=== PATIENT | male | born 1970 | race Caucasian/White ===

== ENCOUNTER 2017-11-23 06:02 | Inpatient (IN) | payer OTHER ==
[2017-11-23] MEDS ORDERED: PROPOFOL 20 ML (06:28)
[2017-11-23] MEDS ORDERED: GLYCOPYRROLATE 0.4 MG INJ (06:28)
[2017-11-23] MEDS ORDERED: NEOSTIGMINE 3 MG/3 ML SYRINGE (06:29)
[2017-11-23] MEDS ORDERED: ROCURONIUM 50 MG INJ (06:29)
[2017-11-23] MEDS ORDERED: MIDAZOLAM 1 MG/ML 2 ML INJ (06:29)
[2017-11-23] MEDS ORDERED: FENTAnyl 50 MCG/ML VIAL ×2 (06:29→09:32)
[2017-11-23] MEDS ORDERED: FENTAnyl 50 MCG/ML VIAL IV ×2 (06:30)
[2017-11-23] MEDS ORDERED: hydrALAzine 20 MG INJ IV (06:30)
[2017-11-23] MEDS ORDERED: HYDROmorphONE 1 MG/5 ML IV SYRINGE IV (06:30)
[2017-11-23] MEDS ORDERED: EPHEDrine SULFATE 50 MG/5 ML SYG IV (06:30)
[2017-11-23] MEDS ORDERED: LABETALOL HCL 20MG INJ IV (06:30)
[2017-11-23] MEDS ORDERED: MIDAZOLAM 1 MG/ML 2 ML INJ IV (06:30)
[2017-11-23] MEDS ORDERED: morphine (1 MG/ML) 10ML SYRINGE IV ×3 (06:30)
[2017-11-23] MEDS ORDERED: ATROPINE 1 MG/10 ML SYRINGE IV (06:30)
[2017-11-23] MEDS ORDERED: OXYCODONE/ACETAMINOPHEN (5/325) TAB PO ×2 (06:30)
[2017-11-23] MEDS ORDERED: LIDOCAINE 2%/EPI 30 ML INJ (06:44)
[2017-11-23] MEDS ORDERED: SUCCINYLCHOLINE CHLORIDE 100 MG/5 ML SYG IV (07:00)
[2017-11-23] MEDS ORDERED: CEFAZOLIN 1 GM INJ (07:00)
[2017-11-23] MEDS ORDERED: metroNIDAZOLE 500 MG/100 ML NS IVPB (07:00)
[2017-11-23] MEDS ORDERED: SEVOFLURANE 15 MIN (07:00)
[2017-11-23] MEDS ORDERED: DEXAMETHASONE 4 MG/ML 1 ML INJ (08:38)
[2017-11-23] MEDS ORDERED: ONDANSETRON 4 MG INJ (08:39)
[2017-11-23] MEDS: BUPIVACAINE 0.25%/EPI (SDV) 30 ML INJ (09:21)
[2017-11-23] MEDS ORDERED: SUGAMMADEX SODIUM 200 MG/2 ML VIAL IV (12:01)
[2017-11-23] MEDS ORDERED: FUROSEMIDE 20 MG INJ (12:28)
[2017-11-23] MEDS: METHYLENE BLUE 1% 10 ML INJ (13:12)
[2017-11-23] MEDS ORDERED: NALOXONE (0.4 MG/ML) INJ IV (15:00)
[2017-11-23] MEDS: AMPICILLIN/SULB 3 GM/NS (PMX) 100 ML IVPB ×2 (15:00→21:20)
[2017-11-23] MEDS: ONDANSETRON 4 MG INJ IV (15:15)
[2017-11-23] MEDS: HYDROmorphONE 1 MG/5 ML IV SYRINGE IV ×2 (15:15→15:33)
[2017-11-23] MEDS: DIPHENHYDRAMINE 50 MG INJ IV (15:16)
[2017-11-23] MEDS: MEPERIDINE 25 MG INJ IV (15:16)
[2017-11-23] MEDS: FENTAnyl 2MCG/ML-ROPIV 0.2% 100 ML BAG EPI (15:23)
[2017-11-23] MEDS: LACTATED RINGER'S 1,000 ML IV (16:30)
[2017-11-23] MEDS: ACETAMINOPHEN 325 MG TAB PO (19:50)
[2017-11-23] MEDS: DOCUSATE SODIUM 100 MG CAP PO (21:25)
[2017-11-23] MEDS: FAMOTIDINE 20 MG INJ IV ×2 (21:25→21:29)
[2017-11-23] MEDS: ZOLPIDEM 5 MG TAB PO (22:10)
[2017-11-24] MEDS: LACTATED RINGER'S 1,000 ML IV (00:32)
[2017-11-24] MEDS: ACETAMINOPHEN 1000MG/100ML IV 100 ML IVPB ×4 (00:32→22:31)
[2017-11-24] MEDS: ZOLPIDEM 5 MG TAB PO ×2 (00:32→23:57)
[2017-11-24] MEDS: AMPICILLIN/SULB 3 GM/NS (PMX) 100 ML IVPB ×2 (02:30→08:14)
[2017-11-24] MEDS: FENTAnyl 2MCG/ML-ROPIV 0.2% 100 ML BAG EPI ×2 (04:17→17:09)
[2017-11-24 05:22] LABS: ADD MAN DIFF? NO
[2017-11-24 05:29] LABS: BASOPHILS % 0.2 % (0.0-2.0); HEMATOCRIT 35.9 % (42.0-52.0); HEMOGLOBIN 11.8 g/dl (14.0-18.0); LYMPHOCYTES # 1.3 10^3/ul (0.8-2.9); LYMPHOCYTES % 15.3 % (15.0-51.0); MEAN CORPUSCULAR HEMOGLOBIN 29.4 pg (29.0-33.0); MEAN CORPUSCULAR HGB CONC 32.9 g/dl (32.0-37.0); MEAN CORPUSCULAR VOLUME 89.5 fl (82.0-101.0); MEAN PLATELET VOLUME 10.5 fl (7.4-10.4); MONOCYTE # 1.1 10^3/ul (0.3-0.9); MONOCYTES % 13.1 % (0.0-11.0); NEUTROPHILS % 71.2 % (39.0-77.0); PLATELET COUNT 193 10^3/UL (140-415); POSITIVE DIFF @See below; RED BLOOD COUNT 4.01 10^6/ul (4.70-6.10); RED CELL DISTRIBUTION WIDTH 14.2 % (11.5-14.5)
[2017-11-24 05:29] LABS: WHITE BLOOD COUNT 8.5 10^3/ul (4.8-10.8)
[2017-11-24 07:42] LABS: ANION GAP 11 (8-16); BLOOD UREA NITROGEN 9 mg/dl (7-20); CALCIUM 8.6 mg/dl (8.4-10.2); CARBON DIOXIDE 27 mmol/L (21-31); CHLORIDE 103 mmol/L (97-110); CREATININE 0.87 mg/dl (0.61-1.24); GLUCOSE 98 mg/dl (70-220); POTASSIUM 3.6 mmol/L (3.5-5.1); SODIUM 137 mmol/L (135-144)
[2017-11-24] MEDS: DOCUSATE SODIUM 100 MG CAP PO ×3 (08:14→19:55)
[2017-11-24] MEDS: OXYCODONE/ACETAMINOPHEN (5/325) TAB PO (08:48)
[2017-11-24] MEDS ORDERED: OXYCODONE/ACETAMINOPHEN (5/325) TAB PO (09:00)
[2017-11-24] MEDS: DEXTROSE 5%-0.45% NACL 1,000 ML IV ×2 (09:21→22:35)
[2017-11-24] MEDS: HYDROmorphONE 1 MG/ML SYG IV ×3 (11:08→19:56)
[2017-11-24] MEDS: FAMOTIDINE 20 MG INJ IV (19:56)
[2017-11-25 05:27] LABS: ADD MAN DIFF? NO
[2017-11-25 05:36] LABS: WHITE BLOOD COUNT 10.1 10^3/ul (4.8-10.8)
[2017-11-25 05:36] LABS: BASOPHILS % 0.3 % (0.0-2.0); EOSINOPHILS % 0.4 % (0.0-7.0); HEMATOCRIT 36.9 % (42.0-52.0); HEMOGLOBIN 12.3 g/dl (14.0-18.0); LYMPHOCYTES # 1.3 10^3/ul (0.8-2.9); LYMPHOCYTES % 12.4 % (15.0-51.0); MEAN CORPUSCULAR HEMOGLOBIN 30.1 pg (29.0-33.0); MEAN CORPUSCULAR HGB CONC 33.3 g/dl (32.0-37.0); MEAN CORPUSCULAR VOLUME 90.2 fl (82.0-101.0); MEAN PLATELET VOLUME 10.4 fl (7.4-10.4); MONOCYTES % 10.3 % (0.0-11.0); NEUTROPHIL # 7.7 10^3/ul (1.6-7.5); NEUTROPHILS % 76.2 % (39.0-77.0); PLATELET COUNT 222 10^3/UL (140-415); RED BLOOD COUNT 4.09 10^6/ul (4.70-6.10); RED CELL DISTRIBUTION WIDTH 14.3 % (11.5-14.5)
[2017-11-25] MEDS: HYDROmorphONE 1 MG/ML SYG IV ×3 (05:38→18:31)
[2017-11-25] MEDS: FENTAnyl 2MCG/ML-ROPIV 0.2% 100 ML BAG EPI (05:52)
[2017-11-25 06:34] LABS: ANION GAP 10 (8-16); BLOOD UREA NITROGEN 5 mg/dl (7-20); CALCIUM 8.9 mg/dl (8.4-10.2); CARBON DIOXIDE 30 mmol/L (21-31); CHLORIDE 102 mmol/L (97-110); GLUCOSE 114 mg/dl (70-220); POTASSIUM 3.5 mmol/L (3.5-5.1); SODIUM 138 mmol/L (135-144)
[2017-11-25] MEDS: FAMOTIDINE 20 MG INJ IV ×2 (08:01→21:02)
[2017-11-25] MEDS: ACETAMINOPHEN 1000MG/100ML IV 100 ML IVPB (08:01)
[2017-11-25] MEDS: DOCUSATE SODIUM 100 MG CAP PO ×3 (08:02→21:01)
[2017-11-25] MEDS: DEXTROSE 5%-0.45% NACL 1,000 ML IV (12:28)
[2017-11-25] MEDS: METOCLOPRAMIDE 10 MG INJ IV ×2 (13:56→18:31)
[2017-11-25] MEDS: OXYCODONE/ACETAMINOPHEN (5/325) TAB PO ×2 (16:54→21:01)
[2017-11-26] MEDS: HYDROmorphONE 1 MG/ML SYG IV ×6 (00:09→22:18)
[2017-11-26] MEDS: METOCLOPRAMIDE 10 MG INJ IV ×4 (00:09→18:18)
[2017-11-26] MEDS: DEXTROSE 5%-0.45% NACL 1,000 ML IV (01:30)
[2017-11-26 05:31] LABS: ADD MAN DIFF? NO
[2017-11-26 05:40] LABS: BASOPHILS % 0.3 % (0.0-2.0); EOSINOPHILS # 0.2 10^3/ul (0.0-0.5); EOSINOPHILS % 1.5 % (0.0-7.0); HEMATOCRIT 37.7 % (42.0-52.0); HEMOGLOBIN 12.5 g/dl (14.0-18.0); LYMPHOCYTES # 1.1 10^3/ul (0.8-2.9); LYMPHOCYTES % 10.7 % (15.0-51.0); MEAN CORPUSCULAR HEMOGLOBIN 29.8 pg (29.0-33.0); MEAN CORPUSCULAR HGB CONC 33.2 g/dl (32.0-37.0); MEAN PLATELET VOLUME 10.2 fl (7.4-10.4); MONOCYTE # 0.9 10^3/ul (0.3-0.9); MONOCYTES % 8.6 % (0.0-11.0); NEUTROPHILS % 78.6 % (39.0-77.0); PLATELET COUNT 248 10^3/UL (140-415); RED BLOOD COUNT 4.19 10^6/ul (4.70-6.10); RED CELL DISTRIBUTION WIDTH 14.1 % (11.5-14.5)
[2017-11-26 05:40] LABS: WHITE BLOOD COUNT 10.1 10^3/ul (4.8-10.8)
[2017-11-26 06:05] LABS: BLOOD UREA NITROGEN 6 mg/dl (7-20); CALCIUM 9.2 mg/dl (8.4-10.2); CARBON DIOXIDE 30 mmol/L (21-31); CHLORIDE 97 mmol/L (97-110); CREATININE 0.88 mg/dl (0.61-1.24); GLUCOSE 101 mg/dl (70-220); POTASSIUM 3.4 mmol/L (3.5-5.1); SODIUM 138 mmol/L (135-144)
[2017-11-26] MEDS: OXYCODONE/ACETAMINOPHEN (5/325) TAB PO ×4 (07:37→20:39)
[2017-11-26] MEDS: DOCUSATE SODIUM 100 MG CAP PO ×3 (08:54→20:32)
[2017-11-26] MEDS: FAMOTIDINE 20 MG INJ IV ×2 (08:54→20:32)
[2017-11-26 09:28] LABS: ANION GAP 11 (5-13)
[2017-11-26] MEDS: ENOXAPARIN 40 MG/0.4 ML SYG SC (10:08)
[2017-11-26] MEDS: POTASSIUM CHLORIDE (SR) 20 MEQ TAB PO (10:09)
[2017-11-26 13:15] LABS: ANION GAP 13 (5-13); BLOOD UREA NITROGEN 9 mg/dl (7-20); CALCIUM 9.1 mg/dl (8.4-10.2); CARBON DIOXIDE 28 mmol/L (21-31); CHLORIDE 96 mmol/L (97-110); CREATININE 0.87 mg/dl (0.61-1.24); GLUCOSE 104 mg/dl (70-220); POTASSIUM 3.4 mmol/L (3.5-5.1); SODIUM 137 mmol/L (135-144)
[2017-11-26] MEDS: ZOLPIDEM 5 MG TAB PO (22:56)
[2017-11-27] MEDS: METOCLOPRAMIDE 10 MG INJ IV ×4 (00:37→18:17)
[2017-11-27] MEDS: OXYCODONE/ACETAMINOPHEN (5/325) TAB PO ×4 (00:38→13:32)
[2017-11-27 05:11] LABS: ADD MAN DIFF? NO
[2017-11-27 05:24] LABS: WHITE BLOOD COUNT 13.8 10^3/ul (4.8-10.8)
[2017-11-27 05:24] LABS: BASOPHILS % 0.2 % (0.0-2.0); EOSINOPHILS # 0.1 10^3/ul (0.0-0.5); EOSINOPHILS % 0.9 % (0.0-7.0); HEMATOCRIT 38.4 % (42.0-52.0); HEMOGLOBIN 12.6 g/dl (14.0-18.0); LYMPHOCYTES # 1.2 10^3/ul (0.8-2.9); LYMPHOCYTES % 8.4 % (15.0-51.0); MEAN CORPUSCULAR HEMOGLOBIN 29.6 pg (29.0-33.0); MEAN CORPUSCULAR HGB CONC 32.8 g/dl (32.0-37.0); MEAN CORPUSCULAR VOLUME 90.1 fl (82.0-101.0); MEAN PLATELET VOLUME 10.3 fl (7.4-10.4); MONOCYTES % 7.4 % (0.0-11.0); NEUTROPHIL # 11.4 10^3/ul (1.6-7.5); NEUTROPHILS % 82.4 % (39.0-77.0); PLATELET COUNT 381 10^3/UL (140-415); RED BLOOD COUNT 4.26 10^6/ul (4.70-6.10); RED CELL DISTRIBUTION WIDTH 13.9 % (11.5-14.5)
[2017-11-27 05:52] LABS: MAGNESIUM 2.1 mg/dl (1.7-2.5)
[2017-11-27] MEDS: DOCUSATE SODIUM 100 MG CAP PO ×3 (08:57→21:00)
[2017-11-27] MEDS: FAMOTIDINE 20 MG INJ IV ×2 (08:57→21:00)
[2017-11-27] MEDS: ENOXAPARIN 40 MG/0.4 ML SYG SC (09:21)
[2017-11-27] MEDS: POTASSIUM CHLORIDE (SR) 20 MEQ TAB PO ×2 (09:32→21:00)
[2017-11-27] MEDS: DEXTROSE 5%-0.45% NACL 1,000 ML IV ×2 (10:09→23:11)
[2017-11-27] MEDS: SENNA TAB PO (21:00)
[2017-11-28] MEDS: METOCLOPRAMIDE 10 MG INJ IV ×4 (06:00→18:00)
[2017-11-28 06:18] LABS: WHITE BLOOD COUNT 8.1 10^3/ul (4.8-10.8)
[2017-11-28 06:18] LABS: HEMATOCRIT 41.9 % (42.0-52.0); HEMOGLOBIN 14.4 g/dl (14.0-18.0); MEAN CORPUSCULAR HEMOGLOBIN 29.4 pg (29.0-33.0); MEAN CORPUSCULAR HGB CONC 34.4 g/dl (32.0-37.0); MEAN CORPUSCULAR VOLUME 85.5 fl (82.0-101.0); MEAN PLATELET VOLUME 10.6 fl (7.4-10.4); PLATELET COUNT 507 10^3/UL (140-415); POSITIVE DIFF @See below; RED CELL DISTRIBUTION WIDTH 13.9 % (11.5-14.5)
[2017-11-28 06:46] LABS: ANION GAP 18 (5-13); BLOOD UREA NITROGEN 21 mg/dl (7-20); CALCIUM 10.3 mg/dl (8.4-10.2); CARBON DIOXIDE 34 mmol/L (21-31); CHLORIDE 84 mmol/L (97-110); CREATININE 1.96 mg/dl (0.61-1.24); GLUCOSE 179 mg/dl (70-220); SODIUM 136 mmol/L (135-144)
[2017-11-28 07:10] LABS: ADD MAN DIFF? YES
[2017-11-28 08:17] LABS: ANISOCYTOSIS 1+ (0-0); BAND NEUTROPHILS #M 0.7 10^3/ul (0.0-0.6); BAND NEUTROPHILS % (M) 9 % (0-4); BASOPHILS % (M) 1 % (0-2); LYMPHOCYTES % (M) 13 % (15-51); MONOCYTE #M 1.7 10^3/ul (0.3-0.9); MONOCYTES % (M) 21 % (0-11); PLATELET ESTIMATE INCREASED; SEG NEUT #M 4.6 10^3/ul (1.6-7.5); SEGMENTED NEUTROPHILS (M) % 56 % (39-77); SMUDGE%M 22 % (0-0)
[2017-11-28] MEDS: DOCUSATE SODIUM 100 MG CAP PO ×3 (09:00→20:52)
[2017-11-28] MEDS ORDERED: NS + KCL 20 MEQ 1,000 ML IV ×2 (09:00→14:00)
[2017-11-28] MEDS: SENNA TAB PO ×2 (09:00→20:52)
[2017-11-28] MEDS: FAMOTIDINE 20 MG INJ IV ×2 (09:00→21:11)
[2017-11-28] MEDS: ENOXAPARIN 40 MG/0.4 ML SYG SC (09:06)
[2017-11-28] MEDS: NS + KCL 20 MEQ 1,000 ML IV ×4 (10:42→18:21)
[2017-11-28 10:54] LABS: ALANINE AMINOTRANSFERASE 62 IU/L (13-69); ALBUMIN/GLOBULIN RATIO 0.71; ALKALINE PHOSPHATASE 118 IU/L (42-121); ASPARTATE AMINO TRANSFERASE 28 IU/L (15-46); BILIRUBIN,INDIRECT 0.5 mg/dl (0-1.1); BILIRUBIN,TOTAL 0.5 mg/dl (0.2-1.3); BLOOD UREA NITROGEN 26 mg/dl (7-20); CALCIUM 10.3 mg/dl (8.4-10.2); CHLORIDE 81 mmol/L (97-110); CREATININE 2.71 mg/dl (0.61-1.24); GLUCOSE 173 mg/dl (70-220); POTASSIUM 3.1 mmol/L (3.5-5.1); SODIUM 134 mmol/L (135-144); TOTAL PROTEIN 9.6 g/dl (6.1-8.1)
[2017-11-28 11:02] LABS: ANION GAP 18 (5-13)
[2017-11-28 11:03] LABS: CARBON DIOXIDE 35 mmol/L (21-31)
[2017-11-28] MEDS: D5W-0.45 NACL + KCL 20 MEQ 1,000 ML IV ×2 (12:44→21:12)
[2017-11-28] MEDS: IOHEXOL 14.3 MG(I)/ML (ADULT) BTL PO (15:08)
[2017-11-28] MEDS: ONDANSETRON 4 MG INJ IV ×2 (15:14→22:09)
[2017-11-29] MEDS: HYDROmorphONE 1 MG/ML SYG IV ×6 (00:01→23:08)
[2017-11-29] MEDS: NS + KCL 20 MEQ 1,000 ML IV (00:18)
[2017-11-29] MEDS: D5W-0.45 NACL + KCL 20 MEQ 1,000 ML IV ×4 (03:00→21:40)
[2017-11-29] MEDS: METOCLOPRAMIDE 10 MG INJ IV ×2 (05:20)
[2017-11-29] MEDS: ONDANSETRON 4 MG INJ IV (06:00)
[2017-11-29] MEDS: FAMOTIDINE 20 MG INJ IV ×2 (06:17→20:50)
[2017-11-29 08:03] LABS: ADD UMIC YES; UR ASCORBIC ACID 20 mg/dL (NEGATIVE); UR BACTERIA FEW /HPF (NONE SEEN); UR BILIRUBIN (Dip) 1+ mg/dL (NEGATIVE); UR BLOOD (Dip) 3+ mg/dL (NEGATIVE); UR CLARITY CLOUDY (CLEAR); UR COLOR AMBER (YELLOW); UR GLUCOSE (Dip) NEGATIVE (NEGATIVE); UR GRANULAR CAST FEW /HPF (NONE SEEN); UR KETONES (Dip) 1+ mg/dL (NEGATIVE); UR LEUKOCYTE ESTERASE (Dip) 2+ Leu/ul (NEGATIVE); UR MUCUS FEW /HPF (NONE SEEN); UR NITRITE (Dip) POSITIVE (NEGATIVE); UR RBC 75 /HPF (0-5); UR SPECIFIC GRAVITY (Dip) 1.029 (1.003-1.030); UR SQUAMOUS EPITHELIAL CELL FEW /HPF (FEW); UR TOTAL PROTEIN (Dip) 2+ mg/dl (NEGATIVE); UR UROBILINOGEN (Dip) NEGATIVE (NEGATIVE); UR WBC > 182 /HPF (0-5)
[2017-11-29] MEDS: DOCUSATE SODIUM 100 MG CAP PO ×3 (08:13→20:07)
[2017-11-29] MEDS: SENNA TAB PO ×2 (08:13→20:08)
[2017-11-29 08:17] LABS: ADD MAN DIFF? NO
[2017-11-29 08:23] LABS: WHITE BLOOD COUNT 8.9 10^3/ul (4.8-10.8)
[2017-11-29 08:23] LABS: BASOPHILS % 0.3 % (0.0-2.0); EOSINOPHILS # 0.2 10^3/ul (0.0-0.5); EOSINOPHILS % 2.2 % (0.0-7.0); HEMATOCRIT 40.3 % (42.0-52.0); HEMOGLOBIN 13.2 g/dl (14.0-18.0); LYMPHOCYTES # 1.3 10^3/ul (0.8-2.9); LYMPHOCYTES % 14.3 % (15.0-51.0); MEAN CORPUSCULAR HEMOGLOBIN 29.2 pg (29.0-33.0); MEAN CORPUSCULAR HGB CONC 32.8 g/dl (32.0-37.0); MEAN CORPUSCULAR VOLUME 89.2 fl (82.0-101.0); MEAN PLATELET VOLUME 9.8 fl (7.4-10.4); MONOCYTE # 1.3 10^3/ul (0.3-0.9); MONOCYTES % 14.3 % (0.0-11.0); NEUTROPHIL # 5.9 10^3/ul (1.6-7.5); NEUTROPHILS % 66.5 % (39.0-77.0); PLATELET COUNT 517 10^3/UL (140-415); POSITIVE DIFF @See below; RED BLOOD COUNT 4.52 10^6/ul (4.70-6.10); RED CELL DISTRIBUTION WIDTH 14.3 % (11.5-14.5)
[2017-11-29 08:41] LABS: ANION GAP 12 (5-13); BLOOD UREA NITROGEN 37 mg/dl (7-20); CALCIUM 9.3 mg/dl (8.4-10.2); CARBON DIOXIDE 40 mmol/L (21-31); CHLORIDE 86 mmol/L (97-110); CREATININE 1.56 mg/dl (0.61-1.24); GLUCOSE 117 mg/dl (70-220); POTASSIUM 4.2 mmol/L (3.5-5.1); SODIUM 138 mmol/L (135-144)
[2017-11-29 08:44] LABS: URIC ACID 11.4 mg/dl (3.1-7.9)
[2017-11-29 08:44] LABS: CREATINE KINASE 33 IU/L (23-200)
[2017-11-29 09:12] LABS: SODIUM,URINE RANDOM 21 mmol/L (30-90)
[2017-11-29] MEDS: ENOXAPARIN 40 MG/0.4 ML SYG SC (09:50)
[2017-11-29] MEDS ORDERED: SOD CHLORIDE 0.9% 1,000 ML IV (10:00)
[2017-11-29] MEDS ORDERED: CEFTRIAXONE 500 MG in SOD CHLORIDE 0.9% 50 ML IVPB (10:00)
[2017-11-29] MEDS: SOD CHLORIDE 0.9% 1,000 ML IV ×2 (10:09→11:10)
[2017-11-29 10:36] LABS: CREATININE,URINE RANDOM 403.55 mg/dl (20-370)
[2017-11-29 10:37] LABS: CREATININE,URINE RANDOM 401.99 mg/dl (20-370); PROTEIN/CREAT RATIO 0.19 RATIO
[2017-11-29] MEDS: CEFTRIAXONE 1 GM/NS 50 ML IVPB (11:10)
[2017-11-29] MEDS: LIDOCAINE 2% VISC 15 ML CUP PO ×3 (12:50→20:09)
[2017-11-30] MEDS: HYDROmorphONE 1 MG/ML SYG IV ×5 (03:20→21:11)
[2017-11-30] MEDS: D5W-0.45 NACL + KCL 20 MEQ 1,000 ML IV ×2 (05:42→18:27)
[2017-11-30] MEDS: LIDOCAINE 2% VISC 15 ML CUP PO ×3 (09:00→20:26)
[2017-11-30] MEDS: SENNA TAB PO ×2 (09:00→20:26)
[2017-11-30] MEDS: DOCUSATE SODIUM 100 MG CAP PO ×3 (09:00→20:25)
[2017-11-30] MEDS: FAMOTIDINE 20 MG INJ IV ×2 (09:28→21:12)
[2017-11-30] MEDS: ENOXAPARIN 40 MG/0.4 ML SYG SC (09:29)
[2017-11-30] MEDS: CEFTRIAXONE 1 GM/NS 50 ML IVPB (10:42)
[2017-11-30 11:43] LABS: ADD MAN DIFF? NO
[2017-11-30 11:56] LABS: ABNORMAL IP MESSAGE 1; BASOPHIL # 0.1 10^3/ul (0.0-0.1); BASOPHILS % 0.8 % (0.0-2.0); EOSINOPHILS # 0.2 10^3/ul (0.0-0.5); EOSINOPHILS % 1.7 % (0.0-7.0); HEMATOCRIT 37.8 % (42.0-52.0); LYMPHOCYTES # 1.7 10^3/ul (0.8-2.9); LYMPHOCYTES % 16.3 % (15.0-51.0); MEAN CORPUSCULAR HGB CONC 31.7 g/dl (32.0-37.0); MEAN CORPUSCULAR VOLUME 91.3 fl (82.0-101.0); MEAN PLATELET VOLUME 9.9 fl (7.4-10.4); MONOCYTES % 9.4 % (0.0-11.0); NEUTROPHIL # 6.8 10^3/ul (1.6-7.5); NEUTROPHILS % 66.1 % (39.0-77.0); PLATELET COUNT 465 10^3/UL (140-415); POSITIVE DIFF @See below; RED BLOOD COUNT 4.14 10^6/ul (4.70-6.10); RED CELL DISTRIBUTION WIDTH 14.3 % (11.5-14.5)
[2017-11-30 11:56] LABS: WHITE BLOOD COUNT 10.3 10^3/ul (4.8-10.8)
[2017-11-30 12:15] LABS: ANION GAP 11 (5-13); BLOOD UREA NITROGEN 16 mg/dl (7-20); CALCIUM 8.7 mg/dl (8.4-10.2); CARBON DIOXIDE 34 mmol/L (21-31); CHLORIDE 94 mmol/L (97-110); CREATININE 0.87 mg/dl (0.61-1.24); GLUCOSE 100 mg/dl (70-220); POTASSIUM 3.2 mmol/L (3.5-5.1); SODIUM 139 mmol/L (135-144)
[2017-11-30 13:03] LABS: ANISOCYTOSIS 1+ (0-0); BAND NEUTROPHILS #M 1.2 10^3/ul (0.0-0.6); BAND NEUTROPHILS % (M) 12 % (0-4); BASOPHIL #M 0.1 10^3/ul (0.0-0.0); BASOPHILS % (M) 1 % (0-2); EOSINOPHILS % (M) 3 % (0-7); GIANT THROMBO% (M) 1 % (0-0); LYMPHOCYTES % (M) 10 % (15-51); METAMYELOCYTES #M 0.3 10^3/ul (0.0-0.0); METAMYELOCYTES %M 3 % (0-0); MONOCYTES % (M) 10 % (0-11); MYELOCYTES #M 0.1 10^3/ul (0.0-0.0); MYELOCYTES % (M) 1 % (0-0); PLATELET ESTIMATE NORMAL; POLYCHROMASIA 1+ (0-0); REACTIVE LYMPHOCYTES #M 0.3 10^3/ul (0.0-0.0); REACTIVE LYMPHOCYTES% (M) 3 % (0-0); SEGMENTED NEUTROPHILS (M) % 57 % (39-77); SMUDGE%M 4 % (0-0)
[2017-11-30] MEDS: IOHEXOL 300MG/ML 150 ML BTL ×2 (14:20→14:23)
[2017-12-01] MEDS: HYDROmorphONE 1 MG/ML SYG IV ×2 (01:38→05:45)
[2017-12-01] MEDS: ONDANSETRON 4 MG INJ IV (01:42)
[2017-12-01] MEDS: D5W-0.45 NACL + KCL 20 MEQ 1,000 ML IV ×2 (03:22→13:21)
[2017-12-01 04:57] LABS: ADD MAN DIFF? NO
[2017-12-01 05:13] LABS: BASOPHIL # 0.1 10^3/ul (0.0-0.1); BASOPHILS % 0.7 % (0.0-2.0); EOSINOPHILS # 0.1 10^3/ul (0.0-0.5); EOSINOPHILS % 0.8 % (0.0-7.0); HEMATOCRIT 39.8 % (42.0-52.0); HEMOGLOBIN 12.5 g/dl (14.0-18.0); LYMPHOCYTES # 2.3 10^3/ul (0.8-2.9); LYMPHOCYTES % 14.5 % (15.0-51.0); MEAN CORPUSCULAR HEMOGLOBIN 28.6 pg (29.0-33.0); MEAN CORPUSCULAR HGB CONC 31.4 g/dl (32.0-37.0); MEAN CORPUSCULAR VOLUME 91.1 fl (82.0-101.0); MEAN PLATELET VOLUME 11.2 fl (7.4-10.4); MONOCYTE # 1.3 10^3/ul (0.3-0.9); MONOCYTES % 8.3 % (0.0-11.0); NEUTROPHIL # 11.2 10^3/ul (1.6-7.5); PLATELET COUNT 346 10^3/UL (140-415); RED BLOOD COUNT 4.37 10^6/ul (4.70-6.10); RED CELL DISTRIBUTION WIDTH 14.3 % (11.5-14.5)
[2017-12-01 05:13] LABS: WHITE BLOOD COUNT 15.7 10^3/ul (4.8-10.8)
[2017-12-01 05:19] LABS: PHOSPHORUS 3.6 mg/dl (2.5-4.9)
[2017-12-01 05:20] LABS: MAGNESIUM 2.8 mg/dl (1.7-2.5)
[2017-12-01 05:25] LABS: ANION GAP 12 (5-13); BLOOD UREA NITROGEN 14 mg/dl (7-20); CALCIUM 8.9 mg/dl (8.4-10.2); CARBON DIOXIDE 32 mmol/L (21-31); CHLORIDE 96 mmol/L (97-110); CREATININE 0.83 mg/dl (0.61-1.24); GLUCOSE 117 mg/dl (70-220); POTASSIUM 3.4 mmol/L (3.5-5.1); SODIUM 140 mmol/L (135-144)
[2017-12-01] MEDS: SENNA TAB PO ×2 (09:00→21:35)
[2017-12-01] MEDS: DOCUSATE SODIUM 100 MG CAP PO ×3 (09:00→21:35)
[2017-12-01] MEDS: LIDOCAINE 2% VISC 15 ML CUP PO ×4 (09:00→21:35)
[2017-12-01] MEDS ORDERED: METOCLOPRAMIDE 10 MG INJ IV (09:00)
[2017-12-01] MEDS: POTASSIUM CHLORIDE 20 MEQ POWDER FOR ORAL SOLN PO (09:30)
[2017-12-01] MEDS: FAMOTIDINE 20 MG INJ IV ×2 (09:30→21:35)
[2017-12-01] MEDS: POTASSIUM CHLORIDE (SR) 20 MEQ TAB PO (09:31)
[2017-12-01] MEDS: ACETAMINOPHEN 325 MG TAB PO ×3 (09:31→21:37)
[2017-12-01] MEDS: CEFTRIAXONE 1 GM/NS 50 ML IVPB (09:33)
[2017-12-01] MEDS: ENOXAPARIN 40 MG/0.4 ML SYG SC (09:45)
[2017-12-01] MEDS: ZOLPIDEM 5 MG TAB PO (21:46)
[2017-12-02] MEDS: D5W-0.45 NACL + KCL 20 MEQ 1,000 ML IV (00:31)
[2017-12-02] MEDS: IBUPROFEN 800 MG TAB PO ×4 (04:03→23:00)
[2017-12-02] MEDS: ZOLPIDEM 5 MG TAB PO ×2 (04:05→23:00)
[2017-12-02 06:04] LABS: ABNORMAL IP MESSAGE 1; HEMATOCRIT 39.5 % (42.0-52.0); HEMOGLOBIN 12.6 g/dl (14.0-18.0); MEAN CORPUSCULAR HEMOGLOBIN 29.1 pg (29.0-33.0); MEAN CORPUSCULAR HGB CONC 31.9 g/dl (32.0-37.0); MEAN CORPUSCULAR VOLUME 91.2 fl (82.0-101.0); MEAN PLATELET VOLUME 9.8 fl (7.4-10.4); PLATELET COUNT 638 10^3/UL (140-415); POSITIVE DIFF @See below; RED BLOOD COUNT 4.33 10^6/ul (4.70-6.10); RED CELL DISTRIBUTION WIDTH 14.6 % (11.5-14.5)
[2017-12-02 06:04] LABS: WHITE BLOOD COUNT 13.7 10^3/ul (4.8-10.8)
[2017-12-02 06:16] LABS: ADD MAN DIFF? YES
[2017-12-02 06:42] LABS: ANION GAP 12 (5-13); BLOOD UREA NITROGEN 10 mg/dl (7-20); CALCIUM 8.9 mg/dl (8.4-10.2); CARBON DIOXIDE 31 mmol/L (21-31); CHLORIDE 98 mmol/L (97-110); CREATININE 0.82 mg/dl (0.61-1.24); Estimated GFR > 60 mL/min (>60); GLUCOSE 93 mg/dl (70-220); POTASSIUM 3.5 mmol/L (3.5-5.1); SODIUM 141 mmol/L (135-144)
[2017-12-02 06:42] LABS: MAGNESIUM 2.7 mg/dl (1.7-2.5)
[2017-12-02] MEDS: LIDOCAINE 2% VISC 15 ML CUP PO ×3 (07:39→20:23)
[2017-12-02 08:13] LABS: ANISOCYTOSIS 3+ (0-0); BAND NEUTROPHILS #M 0.8 10^3/ul (0.0-0.6); BAND NEUTROPHILS % (M) 6 % (0-4); BASOPHIL #M 0.1 10^3/ul (0.0-0.0); BASOPHILS % (M) 1 % (0-2); EOSINOPHILS % (M) 1 % (0-7); LYMPHOCYTES #M 3.4 10^3/ul (0.8-2.9); LYMPHOCYTES % (M) 25 % (15-51); METAMYELOCYTES #M 0.2 10^3/ul (0.0-0.0); METAMYELOCYTES %M 2 % (0-0); MONOCYTE #M 0.4 10^3/ul (0.3-0.9); MONOCYTES % (M) 3 % (0-11); MYELOCYTES #M 0.5 10^3/ul (0.0-0.0); MYELOCYTES % (M) 4 % (0-0); PLATELET ESTIMATE INCREASED; POLYCHROMASIA 3+ (0-0); REACTIVE LYMPHOCYTES #M 0.5 10^3/ul (0.0-0.0); REACTIVE LYMPHOCYTES% (M) 4 % (0-0); SEG NEUT #M 7.5 10^3/ul (1.6-7.5); SEGMENTED NEUTROPHILS (M) % 54 % (39-77); SMUDGE%M 2 % (0-0)
[2017-12-02] MEDS: FAMOTIDINE 20 MG INJ IV ×2 (08:41→20:21)
[2017-12-02] MEDS: CEPASTAT LOZENGE MT ×2 (08:41→11:15)
[2017-12-02] MEDS: DOCUSATE SODIUM 100 MG CAP PO ×3 (08:42→20:22)
[2017-12-02] MEDS: POTASSIUM CHLORIDE 20 MEQ POWDER FOR ORAL SOLN PO (08:42)
[2017-12-02] MEDS: SENNA TAB PO ×2 (08:42→20:22)
[2017-12-02] MEDS: ENOXAPARIN 40 MG/0.4 ML SYG SC (08:50)
[2017-12-02] MEDS: CEFTRIAXONE 1 GM/NS 50 ML IVPB (10:38)
[2017-12-03] MEDS: IBUPROFEN 800 MG TAB PO ×2 (06:25→11:04)
[2017-12-03] MEDS: LIDOCAINE 2% VISC 15 ML CUP PO ×2 (09:00→13:00)
[2017-12-03] MEDS: DIATRIZOATE MEGLUMINE 300 ML BTL UR (09:02)
[2017-12-03] MEDS: FAMOTIDINE 20 MG INJ IV (09:17)
[2017-12-03] MEDS: CEFTRIAXONE 1 GM/NS 50 ML IVPB (09:21)
[2017-12-03] MEDS: ENOXAPARIN 40 MG/0.4 ML SYG SC (09:24)
[2017-12-03] MEDS: SENNA TAB PO (09:31)
[2017-12-03] MEDS: DOCUSATE SODIUM 100 MG CAP PO ×2 (09:32→13:00)
[2017-12-03 11:36] LABS: WHITE BLOOD COUNT 12.8 10^3/ul (4.8-10.8)
[2017-12-03 11:36] LABS: ABNORMAL IP MESSAGE 1; HEMATOCRIT 35.8 % (42.0-52.0); HEMOGLOBIN 11.4 g/dl (14.0-18.0); MEAN CORPUSCULAR HEMOGLOBIN 29.2 pg (29.0-33.0); MEAN CORPUSCULAR HGB CONC 31.8 g/dl (32.0-37.0); MEAN CORPUSCULAR VOLUME 91.8 fl (82.0-101.0); MEAN PLATELET VOLUME 9.5 fl (7.4-10.4); PLATELET COUNT 582 10^3/UL (140-415); POSITIVE DIFF @See below; RED CELL DISTRIBUTION WIDTH 14.4 % (11.5-14.5)
[2017-12-03 11:37] LABS: ADD MAN DIFF? YES
[2017-12-03 11:59] LABS: EOSINOPHILS % (M) 2 % (0-7); LYMPHOCYTES #M 1.7 10^3/ul (0.8-2.9); LYMPHOCYTES % (M) 14 % (15-51); METAMYELOCYTES #M 0.7 10^3/ul (0.0-0.0); METAMYELOCYTES %M 6 % (0-0); MONOCYTE #M 0.6 10^3/ul (0.3-0.9); MONOCYTES % (M) 5 % (0-11); MYELOCYTES #M 0.5 10^3/ul (0.0-0.0); MYELOCYTES % (M) 4 % (0-0); PLATELET ESTIMATE INCREASED; POLYCHROMASIA 3+ (0-0); SEGMENTED NEUTROPHILS (M) % 69 % (39-77); SMUDGE%M 6 % (0-0)
[2017-12-03 13:03] LABS: ANION GAP 10 (5-13); BLOOD UREA NITROGEN 9 mg/dl (7-20); CALCIUM 8.5 mg/dl (8.4-10.2); CARBON DIOXIDE 29 mmol/L (21-31); CHLORIDE 100 mmol/L (97-110); CREATININE 0.79 mg/dl (0.61-1.24); Estimated GFR > 60 mL/min (>60); GLUCOSE 91 mg/dl (70-220); POTASSIUM 3.2 mmol/L (3.5-5.1); SODIUM 139 mmol/L (135-144)
[2017-12-03] MEDS: POTASSIUM CHLORIDE (SR) 20 MEQ TAB PO (13:50)
== END 2017-12-03 16:20 | disposition home or self-care (01) | DRG 329 ==
LOC: REC 06:02 → MS1 16:35
PROC: 0DTN0ZZ Resection of Sigmoid Colon, Open Approach (ICD-10-PCS; principal; 2017-11-23 07:30)
PROC: 0DNW4ZZ Release Peritoneum, Percutaneous Endoscopic Approach (ICD-10-PCS; 2017-11-23 07:30)
PROC: 0DU Gastrointestinal System, Supplement (ICD-10-PCS; 2017-11-23 07:30)
DX: K63.2 Fistula of intestine (principal); N17.0 Acute kidney failure with tubular necrosis; K56.7 Ileus, unspecified; N39.0 Urinary tract infection, site not specified; N32.1 Vesicointestinal fistula; K57.90 Diverticulosis of intestine, part unspecified, without perforation or abscess without bleeding; K66.0 Peritoneal adhesions (postprocedural) (postinfection); E87.6 Hypokalemia; B96.20 Unspecified Escherichia coli [E. coli] as the cause of diseases classified elsewhere
CPT/HCPCS: 71045; 74018; 74176; 74250; 74430; 80048; 80053; 81001; 81003; 82550; 82570; 83735; 84100; 84155; 84300; 84560; 85025; 86850; 86900; 86901; 87086; 88307; 89190; 93005; 97116; 97161; 97530